=== PATIENT | male | born 1975 | race Caucasian/White ===

== ENCOUNTER 2017-02-04 18:46 | Inpatient (IN) | payer MEDICAID, OTHER ==
[~2017-02-04] VITALS: Ht 170.2 cm; Wt 81.2 kg
[~2017-02-04 18:46] MED LIST: MECLIZINE25 M2 PO; ZOFRAN ODT4 MG PO
[2017-02-04 18:52] VITALS: BP 146/78
--- NOTE | 2017-02-04 19:00 | NUR ---
PT AMBULATED TO BED 4.
--- NOTE | 2017-02-04 19:07 | NUR ---
41M BIB C/O LEFT CHEST PAIN, ACHING, NON-RADIATING, 6/10 X LAST NIGHT S/P PLAYING SOCCER; PT C/O DIFFICULTY BREATHING AT THIS TIME; BL LUNG SOUNDS CLEAR, RR EVEN/UNLABORED, EQUAL RISE/FALL OF CHEST NOTED AT THIS TIME; PT SPEAKING IN FULL, CLEAR SENTENCES AT THIS TIME; PT AA&OX4, PERRLA, STATES NO N/V/D AT THIS TIME; SKIN IS WARM/DRY/INTACT AT THIS TIME; STEADY GAIT; PT PLACED ON MONITOR, RESTING IN BED WITH HOB ELEVATED AND IN LOWEST POSITION; POSITIONED FOR COMFORT; ER MD MADE AWARE OF STATUS. WILL CONTINUE TO MONITOR.
--- NOTE | 2017-02-04 19:14 | NUR ---
Pt report given to DINESH ZELAYA. Transfer of care at this time.
--- NOTE | 2017-02-04 19:15 | NUR ---
REPORT RECEIVED FROM MORNING RN. PT RESTING IN BED AND STABLE AT THIS TIME.
--- NOTE | 2017-02-04 19:23 | NUR ---
GONZALO GIFFORD AT BED SIDE EVALUATING PT.
[2017-02-04] MEDS ORDERED: CLOPIDOGREL 75 MG TAB PO ONE (19:30)
[2017-02-04] MEDS ORDERED: NACL 0.9% 1,000 ML IV ONE (19:30)
[2017-02-04] MEDS ORDERED: MORPHINE SULFATE 2 MG/ML SYR IVP ONE (19:30)
--- NOTE | 2017-02-04 19:35 | NUR ---
X-RAYS DONE AT BED SIDE.
[2017-02-04] MEDS ORDERED: ENOXAPARIN 80 MG/0.8 ML SYR SUBQ ONE (20:40)
[2017-02-04] MEDS ORDERED: POTASSIUM CHLORIDE 10 MEQ TABER PO ONE (20:45)
--- NOTE | 2017-02-04 21:09 | NUR ---
Patient will be admitted to care of DR. MILLER . Admited to TELE. Will go to room 112A. Belongings list completed. Report given to DINESH De La Cruz in Tele.
[2017-02-04 21:15] VITALS: BP 124/64
--- NOTE | 2017-02-04 21:15 | NUR ---
PT ARRIVED TO THE UNIT FROM THE ER VIA GURNEY ACCOMPANIED WITH . WAS ABLE TO AMBULATE TO HIS BED. PT IS AOX4, ABLE TO MAKE NEEDS KNOWN. WITH RESPIRATIONS CLEAR AND UNLABORED. WITH COMPLAINTS OF CHEST PAIN OF 3/10 BUT REFUSED PAIN MEDICATION. SKIN INTACT. WITH AN IV TO THE LEFT AC 20 G, INTACT AND PATENT. INITIAL ASSESSMENT DONE. ORIENTED PT TO THE UNIT, VERBALIZED UNDERSTANDING. WILL CONTINUE TO MONITOR. ALL NEEDS ATTENDED. CALL LIGHT WITHIN REACH. SAFETY CHECKS IN PLACE.
--- NOTE | 2017-02-04 21:21 | NUR ---
PT WAS TRANSFERRED TO TELE ROOM 12 VIA [facility] WITH 2 RNS. PT STALBE CONDITION.
[2017-02-04] MEDS ORDERED: NITROGLYCERIN 0.4 MG TAB SL PRN (21:35)
[2017-02-04] MEDS ORDERED: ONDANSETRON 4 MG/2 ML VIAL IM/IVP PRN (21:35)
[2017-02-04] MEDS ORDERED: DOCUSATE SODIUM 100 MG GELCAP PO PRN (21:35)
[2017-02-04] MEDS ORDERED: MORPHINE SULFATE 2 MG/ML SYR IVP PRN ×2 (21:35)
[2017-02-04] MEDS ORDERED: ACETAMINOPHEN 325 MG TAB PO PRN (21:35)
[2017-02-04] MEDS ORDERED: HYDROcodone/APAP 7.5/325 MG 1 TAB PO PRN (21:35)
[2017-02-04] MEDS: NACL 0.9% 1,000 ML IV SCH (22:06)
--- NOTE | 2017-02-04 22:15 | NUR ---
EDUCATED THE PATIENT IN REGARDS TO URINE COLLECTION, TO URINATE AND COLLECT INTO THE CONTAINER WHEN HE IS FINISHED.
[2017-02-04] MEDS ORDERED: POTASSIUM CHLORIDE 10 MEQ TABER PO SCH (23:15)
--- NOTE | 2017-02-04 23:20 | NUR ---
COLLECTED URINE SPECIMEN FROM PATIENT.
[2017-02-05] VITALS: BP 102/47
--- NOTE | 2017-02-05 | NUR ---
VITALS STABLE. NO S/S OF DISTRESS. NO COMPLAINTS OF PAIN. INFORMED DR. RAMIREZ OF THE SINUS BRADYCARDIA.
[2017-02-05 04:00] VITALS: BP 110/70
--- NOTE | 2017-02-05 04:00 | NUR ---
VITAL SIGNS STABLE. NO S/S OF DISTRESS. COMPLAINED OF CHEST PAIN 3/10, BUT REFUSED PAIN MEDICATION. WILL CONTINUE TO MONITOR. CALL LIGHT WITHIN REACH.
--- NOTE | 2017-02-05 07:25 | NUR ---
ENDORSED TO AM SHIFT NURSE FOR CONTINUITY OF CARE, IN STABLE CONDITION.
--- NOTE | 2017-02-05 07:27 | NUR ---
RECEIVED PT IN BED. ASLEEP. AROUSABLE TO VOICE. NO SOB NOTED. DENIES ANY PAIN OR DISCOMFORT AT THIS TIME. POSITIVE BOWEL SOUNDS NOTED ON FOUR QUADRANTS. DENIES ANY PROBLEM WITH BOWEL OR BLADDER ELIMINATION AT THIS TIME. PT AMBULATORY. SAFETY PRECAUTION IN PLACE. CALL LIGHT WITHIN REACH.
[2017-02-05 07:56] VITALS: BP 109/70
[2017-02-05] MEDS ORDERED: LISINOPRIL 20 MG TAB PO SCH (09:00)
[2017-02-05] MEDS ORDERED: METOPROLOL SUCCINATE 50 MG TABER PO SCH (09:00)
[2017-02-05] MEDS ORDERED: CLOPIDOGREL 75 MG TAB PO ONE (09:00)
[2017-02-05] MEDS ORDERED: PANTOPRAZOLE 40 MG TABEC PO SCH (09:00)
[2017-02-05] MEDS ORDERED: CLOPIDOGREL 75 MG TAB PO SCH (09:00)
--- NOTE | 2017-02-05 09:05 | NUR ---
PATIENT HAS BEEN SCREENED AND CATEGORIZED MODERATE NUTRITION RISK. PATIENT WILL BE SEEN WITHIN 3-5 DAYS OF ADMISSION. 02/07/17-02/09/[address]
[2017-02-05] MEDS ORDERED: POTASSIUM CHLORIDE 10 MEQ TABER PO SCH (11:00)
[2017-02-05] MEDS: NACL 0.9% 1,000 ML IV SCH (11:06)
[2017-02-05 12:00] VITALS: BP 109/62
--- NOTE | 2017-02-05 14:10 | NUR ---
PT AWAKE IN BED. DENIES ANY CHEST PAIN, DENIES ANY PAIN OR DISCOMFORT AT THIS TIME. NO SOB NOTED.
--- NOTE | 2017-02-05 14:34 | NUR ---
FAXED INITIAL REVIEW TO [facility] [phone] PHONE [phone]
[2017-02-05] MEDS ORDERED: ATORVASTATIN CA20 MG PO (15:02)
[2017-02-05 16:00] VITALS: BP 119/60
--- NOTE | 2017-02-05 17:11 | NUR ---
PT TRANSFERRED FROM RM 112A TO 106A.
[2017-02-05] MEDS ORDERED: INFLUENZA VIRUS VACCINE QUAD 0.5 ML SYR IMVAC SCH (18:35)
[2017-02-05] MEDS ORDERED: LIPITOR20 MG PO (18:40)
--- NOTE | 2017-02-05 18:59 | NUR ---
FLU VACCINE GIVEN TO PT IM.
--- NOTE | 2017-02-05 19:00 | NUR ---
DISCHARGE INSTRUCTIONS AND HEALTH TEACHINGS GIVEN AND EXPLAINED TO PT. PT VERBALIZED UNDERSTANDING. REMINDED TO FOLLOW UP WITH [facility]. PT AGREES AND SIGNED DISCHARGE PAPERS. IV CANNULA REMOVED. TELEBOX REMOVED. NAME ARMBAND REMOVED. NO SOB NOTED DENIES ANY PAIN OR DISCOMFORT AT THIS TIME. REFUSES TO BE WHEELED OUT. WALKED WITH PT GOING TO THE HOSPITAL PARKING LOT WITH , TO THEIR PRIVATELY OWNED VEHICLE. PT DISCHARGED ON STABLE CONDITION.
[2017-02-05] MEDS ORDERED: ATORVASTATIN 20 MG TAB PO SCH (21:00)
== END 2017-02-05 19:00 | disposition home or self-care (01) | DRG 392 ==
LOC: MED 18:46 → MTU 21:13
PROVIDERS: ADMIT Student in an Organized Health Care Education/Training Program; ATTEND Student in an Organized Health Care Education/Training Program
PROC: 3E0234Z Introduction of Serum, Toxoid and Vaccine into Muscle, Percutaneous Approach (ICD-10-PCS; principal; 2017-02-05)
DX: K21.9 Gastro-esophageal reflux disease without esophagitis (principal); R00.1 Bradycardia, unspecified; R03.0 Elevated blood-pressure reading, without diagnosis of hypertension; E78.5 Hyperlipidemia, unspecified; E87.6 Hypokalemia; Z88.6 Allergy status to analgesic agent; Z23 Encounter for immunization